=== PATIENT | female | born 1960 | race Caucasian/White ===

== ENCOUNTER 2016-10-27 16:27 | Emergency (ER) | payer SELFPAY ==
[~2016-10-27] VITALS: Ht 162.6 cm; Wt 88.9 kg
[~2016-10-27 16:27] MED LIST: ALBUTEROL SULF8.5 GM IH; AZITHROMYCIN250 MG PO; FLEXERIL10 MG PO; NAPROSYN500 MG PO; NORCO 5/3251 TABLET PO; PERCOCET 5/31 TABLET PO; PREDNISONE20 MG PO
[2016-10-27] MEDS ORDERED: AMOXICILLIN875 MG PO (17:44)
[2016-10-27] MEDS ORDERED: PERCOCET 5/31 TABLET PO (17:44)
[2016-10-27 17:59] VITALS: BP 110/88
== END 2016-10-27 18:01 | disposition home or self-care (01) ==
LOC: EME 16:27
DX: K02.9 Dental caries, unspecified (principal); K04.7 Periapical abscess without sinus; S93.402A Sprain of unspecified ligament of left ankle, initial encounter; F17.200 Nicotine dependence, unspecified, uncomplicated
CPT/HCPCS: 73610; 99281; 99284